=== PATIENT | male | born 1950 | race Caucasian/White ===

== ENCOUNTER 2022-12-22 07:55 | Emergency (ER) | payer MEDICARE, OTHER ==
[~2022-12-22] VITALS: Ht 177.8 cm; Wt 109.6 kg
[~2022-12-22 07:55] MED LIST: GLUMETZA500 MG PO; OMEPRAZOLE20 MG PO; PAXLOVID CO-PA1 EAC1 PO; VENTOLIN HFA18 GM
--- OUTSIDE RECORDS SUMMARY | 2022-12-22 07:58 | XMS ---
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 Rula has no Care Guidelines for this patient. [facility] VISIT COUNT (12 MO.) 1 JUVENAL Mancia [facility] TOTAL 2 NOTE: Visits indicate total known visits. ED/[facility] VISIT TRACKING (12 MO.) 12/22/2022 07:56 [facility] [place] TYPE: Emergency COMPLAINT: - HEADACHE 05/18/2022 10:56 [facility] [place] TYPE: Emergency DIAGNOSES: - Pain in thoracic spine - Unspecified fall, initial encounter - BACK PAIN INPATIENT VISIT TRACKING (12 MO.) No inpatient visits to display in this time frame [id number]
[2022-12-22] MEDS ORDERED: AMLODIPINE BESY10 MG PO (08:08)
[2022-12-22] MEDS ORDERED: LEVOTHYROXINE200 MCG PO (08:09)
[2022-12-22] MEDS ORDERED: ATENOLOL25 MG PO (08:09)
[2022-12-22] MEDS ORDERED: FUROSEMIDE20 MG PO (08:09)
[2022-12-22] MEDS ORDERED: GLIPIZIDE10 MG PO (08:09)
[2022-12-22] MEDS ORDERED: LISINOPRIL40 MG PO (08:10)
[2022-12-22] MEDS ORDERED: MELOXICAM7.5 MG PO (08:10)
[2022-12-22] MEDS ORDERED: POTASSIUM CHLO20 ME1 PO (08:10)
[2022-12-22] MEDS ORDERED: METFORMIN HCL1000 MG PO (08:11)
[2022-12-22] MEDS ORDERED: TRAMADOL HCL50 MG PO (08:11)
[2022-12-22] MEDS ORDERED: TERAZOSIN HCL10 MG PO (08:11)
[2022-12-22] MEDS ORDERED: LANTUS SOL100 UNIT/1 SUB-Q (08:12)
[2022-12-22] MEDS ORDERED: ONDANSETRON ODT4 MG PO (08:13)
[2022-12-22] MEDS ORDERED: HYDROCODON-ACE1 EA10 PO (09:04)
[2022-12-22] MEDS ORDERED: OXYCODONE HCL5 MG PO (09:06)
[2022-12-22 09:31] VITALS: BP 152/70
== END 2022-12-22 09:34 | disposition home or self-care (01) ==
LOC: ED 07:55
DX: R51.9 Headache, unspecified (principal); I10 Essential (primary) hypertension; E11.9 Type 2 diabetes mellitus without complications; Z79.899 Other long term (current) drug therapy; Z79.84 Long term (current) use of oral hypoglycemic drugs; Z79.4 Long term (current) use of insulin
CPT/HCPCS: A9270; J2270

== ENCOUNTER 2024-04-14 15:04 | Emergency (ER) | payer MEDICARE, OTHER ==
[~2024-04-14] VITALS: Ht 177.8 cm; Wt 108.9 kg
[~2024-04-14 15:04] MED LIST changes: +AMLODIPINE BESY10 MG PO; +ATENOLOL25 MG PO; +FUROSEMIDE20 MG PO; +GLIPIZIDE10 MG PO; +HYDROCODON-ACE1 EA10 PO; +LANTUS SOL100 UNIT/1 SUB-Q; +LEVOTHYROXINE200 MCG PO; +LISINOPRIL40 MG PO; +MELOXICAM7.5 MG PO; +METFORMIN HCL1000 MG PO; +ONDANSETRON ODT4 MG PO; +OXYCODONE HCL5 MG PO; +POTASSIUM CHLO20 ME1 PO; +TERAZOSIN HCL10 MG PO; +TRAMADOL HCL50 MG PO
[2024-04-14] MEDS ORDERED: PREGABALIN75 MG PO (17:58)
[2024-04-14] MEDS ORDERED: DEXAMETHASONE4 MG PO (17:59)
[2024-04-14] MEDS ORDERED: HYDROCODON-ACE1 EAC8 PO (18:00)
[2024-04-14] MEDS ORDERED: LENALIDOMIDE25 MG PO (18:00)
[2024-04-14] MEDS ORDERED: KETOCONAZOLE120 ML TOP (18:01)
[2024-04-14 19:19] LABS: BASOPHILS 0.6 % (0-2); EOSINOPHILS 1.6 % (0-6); HEMATOCRIT 27.2 % (35.0-50.0); HEMOGLOBIN 8.8 g/dL (12.0-18.0); MCH 23.6 (27-36); MCHC 32.3 g/dl (30-36); MCV 73.1 fl (81-99); MONOCYTES 5.3 % (0-12); NEUTROPHILS 81.5 % (39-80); PLATELET COUNT 233 K/uL (140-440); RBC 3.73 M/ul (4.3-5.7); RDW 19.8 (10.5-15.0)
[2024-04-14 19:35] LABS: ALBUMIN 3.1 g/dL (3.4-5.0); ALBUMIN/GLOBULIN RATIO 0.55 (1.1-2.4); ANION GAP 11.9 (7-21); BILIRUBIN, TOTAL 0.2 mg/dL (0.2-1.0); BUN/CREATININE RATIO 12.65 (6.0-28.6); CALCIUM 8.7 mg/dL (8.5-10.1); CREATININE, SERUM 0.79 mg/dL (0.70-1.30); POTASSIUM 3.9 mmol/L (3.5-5.1); PROTEIN, TOTAL 8.7 g/dL (6.4-8.2)
[2024-04-14 20:27] LABS: ERYTHROCYTE SEDIMENTATION RATE 68
[2024-04-14] MEDS ORDERED: DILAUDID2 MG PO (21:16)
[2024-04-14] MEDS ORDERED: HYDROmorphone HCL 2 MG HOME.PACK PO ONE (21:30)
[2024-04-14 21:52] VITALS: BP 148/64
== END 2024-04-14 21:52 | disposition home or self-care (01) ==
LOC: ED 15:04
PROVIDERS: Emergency Medicine
DX: M84.462A Pathological fracture, left tibia, initial encounter for fracture (principal); M84.464A Pathological fracture, left fibula, initial encounter for fracture; C90.00 Multiple myeloma not having achieved remission; I10 Essential (primary) hypertension; E11.9 Type 2 diabetes mellitus without complications; Z79.84 Long term (current) use of oral hypoglycemic drugs; Z79.890 Hormone replacement therapy; Z79.899 Other long term (current) drug therapy
CPT/HCPCS: 36415; 73701; 80053; 85025; 85651; 86140; 99284-25